=== PATIENT | female | born 1975 | race Caucasian/White ===

== ENCOUNTER 2017-08-05 10:38 | Emergency (ER) | payer OTHER ==
--- NOTE | 2017-08-05 10:50 | PDOC ---
History of Present Illness <Negro Higgins - Last Filed: 08/05/17 12:06> - General History Source: Patient, Family Exam Limitations: No Limitations - History of Present Illness Initial Comments: 08/05/17 12:17F 42F withno pmh presents with back pain for the past 3 days. The pain is has progressively increased to 9/10, non-radiating localized to the Right shoulder blade area. She was driving home from work when the pain started appearing. Patient is a seamstress, working sitting down at a sewing machine, often slouched over. No recent muscular work out or exertion. Pt denies any injury or fall. Denies any chest pain/SOB. Denies neck pain. Denies weakness/numbness/tingling in any extremity. Denies lower back pain. denies Incontinence/saddle anesthesia. No flank pain/dysuria. 08/05/17 12:22 <Demarco Washington - Last Filed: 08/05/17 12:36> - General Chief Complaint: Back Pain Stated Complaint: RIGHT MID BACK PAIN X 4 DAYS Time Seen by Provider: 08/05/17 10:48 Past History <Negro Higgins - Last Filed: 08/05/17 12:06> <Demarco Washington - Last Filed: 08/05/17 12:36> - Past Medical History Allergies/Adverse Reactions: Allergies Allergy/AdvReac Type Severity Reaction Status Date / Time No Known Allergies Allergy Verified 08/05/17 10:55 Home Medications: Ambulatory Orders NK [No Known Home Medication] 08/05/17 Review of Systems - Review of Systems Able to Perform ROS?: Yes Is the patient limited Tuvaluan proficient: Yes Constitutional: No: Symptoms Reported HEENTM: No: Symptoms Reported Respiratory: No: Symptoms reported Cardiac (ROS): No: Symptoms Reported ABD/GI: No: Symptoms Reported : No: Symptoms Reported Musculoskeletal: Yes: See HPI <Demarco Washington - Last Filed: 08/05/17 12:36> *Physical Exam - Vital Signs Last Vital Signs Temp Pulse Resp BP Pulse Ox 98.2 F 65 15 130/84 100 08/05/17 10:42 08/05/17 10:42 08/05/17 10:42 08/05/17 10:42 08/05/17 10:42 <Negro Higgins - Last Filed: 08/05/17 12:06> - Physical Exam General Appearance: Yes: Nourished, Appropriately Dressed. No: Apparent Distress HEENT: positive: EOMI, JADE, Normal ENT Inspection Respiratory/Chest: positive: Lungs Clear, Normal Breath Sounds. negative: Chest Tender, Respiratory Distress Cardiovascular: positive: Regular Rhythm, Regular Rate, S1, S2 Gastrointestinal/Abdominal: positive: Normal Bowel Sounds. negative: Tender Musculoskeletal: positive: Other. negative: Vertebral Tenderness (pain increase with palpation/abduction of the arm. Relieved with massage) <PadminiDemarco - Last Filed: 08/05/17 12:36> Medical Decision Making - Medical Decision Making 08/05/17 12:34 42 F with atraumatic R upper back pain. No midline tenderness or neurological findings to suggest cord injury. Pt with likely neuromuscular pain as she is tender to palpation in distribution of her right trapezius muscle/scapula. Possible occupational nerve pinching due to posture.. Pt denying CP/SOB, making pulmonary etiology unlikely. Pt also with no flank pain or dysuria to suggest pyelo/renal colic. No abdominal tenderness to suggest karly. - NSAIDs - F/u PMD <PadminiDemarco - Last Filed: 08/05/17 12:36> *DC/Admit/Observation/Transfer <Negro Higgins - Last Filed: 08/05/17 12:06> <Demarco Washington - Last Filed: 08/05/17 12:36> Diagnosis at time of Disposition: Trapezius muscle strain - Discharge Dispostion Disposition: HOME Condition at time of disposition: Good - Referrals Referrals: Penny Booker NP [Primary Care Provider] - - Patient Instructions Printed Discharge Instructions: DI for Thoracic Back Pain Additional Instructions: Do not do any activities that may exacerbate your back pain. Take motrin every 8 hours as needed for pain. Follow up with your primary doctor within 1 week for a re-evaluation. If you experience worsening pain, shortness of breath, weakness, numbness, or any other concerning symptoms, return to the ER immediately. Print Language: PASHTO
[2017-08-05 11:08] VITALS: BP 130/84; PULSE 65; TEMP 98.2; BMI 26.4
--- NOTE | 2017-08-05 11:38 | PDOC ---
Attending Attestation - Resident Resident Name: PadminiDemarco - ED Attending Attestation I have performed the following: I have examined & evaluated the patient, The case was reviewed & discussed with the resident, I agree w/resident's findings & plan, Exceptions are as noted - HPI HPI: 08/05/17 11:59 42 F with no PMH presents to ER with 5 days of R upper back pain. Pt states that it began while she was at work on Tuesday. 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 Pt denies any injury or fall. Denies any chest pain/SOB. Denies neck pain. Denies weakness/numbness/tingling in any extremity. Denies lower back pain. denies Incontinence/saddle anesthesia. No flank pain/dysuria. - Physicial Exam PE: 08/05/17 12:02 "GENERAL: Awake, alert, and fully oriented, in no acute distress HEAD: No signs of trauma EYES: PERRLA, EOMI, sclera anicteric, conjunctiva clear ENT: Auricles normal inspection, hearing grossly normal, nares patent, oropharynx clear without exudates. Moist mucosa NECK: Nontender, no stepoffs, Normal ROM, supple, no lymphadenopathy, JVD, or masses LUNGS: Breath sounds equal, clear to auscultation bilaterally. No wheezes, and no crackles HEART: Regular rate and rhythm, normal S1 and S2, no murmurs, rubs or gallops ABDOMEN: Soft, nontender, normoactive bowel sounds. No guarding, no rebound. No masses EXTREMITIES: Normal range of motion, no edema. No clubbing or cyanosis. No cords, erythema, or tenderness BACK: NO midline tenderness, no stepoffs, mild tenderness to palpation in distribution of R trapezius muscle NEUROLOGICAL: Cranial nerves II through XII intact. 5/5 strength and sensation in all extremities, Normal speech, normal gait SKIN: Warm, Dry, normal turgor, no rashes or lesions noted. " - Medical Decision Making 08/05/17 12:03 42 F with atraumatic R upper back pain. No midline tenderness or neurological findings to suggest cord injury. Pt with likely muscular pain as she is tender to palpation in distribution of her R trapezius muscle. 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 Pt denying CP/SOB, making pulmonary or cardiovascular etiology unlikely. Pt also with no flank pain or dysuria to suggest pyelo/renal colic. No abdominal tenderness to suggest karly. - NSAIDs - F/u PMD
[2017-08-05] MEDS ORDERED: KETOROLAC TROMETHAMINE 15 MG/ML VIAL IM ONE (12:00)
[2017-08-05] MEDS ORDERED: KETOROLAC TROMETHAMINE 30 MG/1 ML VIAL ONE (12:17)
== END 2017-08-05 12:26 | disposition home or self-care (01) ==
LOC: FER 10:38
PROC: 3E0233Z Introduction of Anti-inflammatory into Muscle, Percutaneous Approach (ICD-10-PCS; principal; 2017-08-05)
DX: T14.8XXA Other injury of unspecified body region, initial encounter (principal); X58.XXXA Exposure to other specified factors, initial encounter; Y93.9 Activity, unspecified; Y92.9 Unspecified place or not applicable; Y99.0 Civilian activity done for income or pay
CPT/HCPCS: 96372; 99282-25